=== PATIENT | male | born 1985 ===

== ENCOUNTER 2019-07-20 15:56 | Outpatient (REF) | payer SELFPAY | END 2019-07-20 16:16 | LOC: NCHCN 15:56 | PROVIDERS: Visit Provider Nurse Practitioner Family | DX: R69 Illness, unspecified (principal) ==

== ENCOUNTER 2019-07-20 16:05 | Outpatient (REF) | payer SELFPAY ==
[2019-07-20 21:45] LABS: Anion Gap 9.2 mmol/L (3-11); BUN 16 mg/dL (7-18); CO2 28.8 mmol/L (21.0-32.0); CREATININE 1.09 mg/dL (0.70-1.30); Calcium 9.5 mg/dL (8.5-10.1); Chloride 103 mmol/L (98-107); Glucose 75 mg/dL (70-100); Potassium 4.2 mmol/L (3.5-5.1); Sodium 141 mmol/L (136-145)
[2019-07-20 22:34] LABS: PROTEIN 163.6 mg/dL
[2019-07-20 22:51] LABS: COMMENT (LAB VIEW ONLY) 245.35 mg/dL; Prot/Crea Ur Ratio 0.66
[2019-07-20 23:06] LABS: Bacteria Negative HPF (Negative); C & S Indicated? No; Casts Negative LPF (Negative); Crystals Negative HPF (Negative); Epithelial Cells Negative HPF (Negative); Mucus Negative (Negative); RBC 0-2 (0-2); WBC 0-2 HPF (0-5)
[2019-07-22 15:08] LABS: Chlamydia Result Negative; GC Result Negative; Specimen Description URINE
== END 2019-07-20 16:25 ==
LOC: NCHCN 16:05
PROVIDERS: Visit Provider Nurse Practitioner Family
DX: R30.0 Dysuria (principal); Z11.3 Encounter for screening for infections with a predominantly sexual mode of transmission
CPT/HCPCS: 80048; 87491; 87591; 81015; 82565; 84156

== ENCOUNTER 2020-08-16 22:49 | Outpatient (REF) | payer OTHER, SELFPAY ==
[2020-08-16 22:37] LABS: Bilirubin Negative (Negative); Blood Trace-intact (Negative); Clarity Clear (Clear); Glucose Negative (Negative); Ketones Negative (Negative); Leukocyte Esterase Trace (Negative); Nitrite Negative (Negative); Specific Gravity 1.025 (1.005-1.025); Urobilinogen 0.2 EU/dL (Up TO 0.2); pH 6.5 (5-8)
[2020-08-16 22:41] LABS: Bacteria Moderate HPF (Negative); C & S Indicated? Yes; Casts Negative LPF (Negative); Crystals Negative HPF (Negative); Mucus Negative (Negative)
[2020-08-16 22:42] LABS: Epithelial Cells Rare HPF (Negative)
[2020-08-18 14:30] LABS: Chlamydia Result Negative (Negative); GC Result Negative (Negative)
== END 2020-08-16 23:09 ==
LOC: NCHCN 22:49
PROVIDERS: Visit Provider Nurse Practitioner Family
DX: N50.812 Left testicular pain (principal)
CPT/HCPCS: 87077; 87491; 87591; 81003; 81015; 87086